=== PATIENT | male | born 1960 | race African-American/Black ===

== ENCOUNTER → 2017-05-19 | Outpatient (CLI) | payer OTHER | LOC: COL.RAD 08:51 | DX: S83.512A Sprain of anterior cruciate ligament of left knee, initial encounter (principal); M17.12 Unilateral primary osteoarthritis, left knee; S83.242A Other tear of medial meniscus, current injury, left knee, initial encounter; M94.8X8 Other specified disorders of cartilage, other site; Z98.890 Other specified postprocedural states; M25.762 Osteophyte, left knee ==